=== PATIENT | male | born 1950 | race American Indian/Alaskan Native ===

== ENCOUNTER 2016-06-30 20:15 | Emergency (ER) | payer OTHER ==
[2016-06-30] MEDS: TETRACAINE 0.5% OU STA (21:16)
[2016-06-30] MEDS: FUL-GLO OP ONE (21:16)
--- NOTE | 2016-06-30 21:26 | Emergency Department Report ---
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 PT states sometimes little pieces of the buffer's pad will break off. PT states he thinks that got in his eye. PT states he was buffing the floors around 2230 and his eye felt irritated this am. PT states he looked at his eye and he noticed it was red. PT states he flushed his eye but he still feels like something is in it. PT does not wear contacts MD chief complaint: eye injury, foreign body -: Gradual Onset Description: gradual (irritation feeling ) Location: right eye Place: work If Injury: other (while buffering ) Eye Symptoms: redness, pain, foreign body sensation Severity scale (0 -10): 0 Consistency: constant Context: injury Associated Symptoms: denies: headache, neck pain, nausea/vomiting Treatments Prior to Arrival: irrigated eye - Related Data Patient Tetanus UTD: Yes Previous Rx's Medication Instructions Recorded Last Taken Type Tobramycin 0.3% [Tobrex] 2 drop OD Q8HR 7 Days 06/30/16 Unknown Rx Allergies Allergy/AdvReac Type Severity Reaction Status Date / Time No Known Allergies Allergy Verified 06/30/16 21:07 ED Review of Systems ROS: Stated complaint: F/B RT EYE Other details as noted in HPI Comment: All other systems reviewed and negative Constitutional: denies: chills, fever Eyes: eye pain (irritation ). denies: eye discharge, vision change, other ( redness ) Respiratory: denies: cough Skin: denies: rash, change in color ED Past Medical Hx - Past Medical History Previous Medical History?: No - Surgical History Past Surgical History?: No - Social History Smoking Status: Never Smoker Substance Use Type: None - Medications Home Medications: Home Medications Medication Instructions Recorded Confirmed Last Taken Type Tobramycin 0.3% [Tobrex] 2 drop OD Q8HR 7 Days 06/30/16 Unknown Rx ED Physical Exam - General Limitations: No Limitations General appearance: alert, in no apparent distress - Head Head exam: Present: atraumatic, normocephalic - Eye Eye exam: Present: EOMI, conjunctival injection (R eye ), other (pt has two areas of his R cornea with brown pigmentation, pt states this is not new ) - Expanded Eye Exam Expanded Eyelids: Normal Inspection: Right Pupils: Regular, Round: Bilateral, Reactive: Bilateral Sclera/Conjunctival: Injection: Right, Hemorrhage: Right Anterior chamber: Normal Inspection: Bilateral Visual acuity (R) = 20/: 30 Visual acuity (L) = 20/: 25 - ENT ENT exam: Present: normal exam, mucous membranes moist - Neck Neck exam: Present: normal inspection, full ROM - Respiratory Respiratory exam: Present: normal lung sounds bilaterally. Absent: respiratory distress - Cardiovascular Cardiovascular Exam: Present: regular rate, normal rhythm, normal heart sounds - Extremities Exam Extremities exam: Present: normal inspection, full ROM - Back Exam Back exam: Present: normal inspection, full ROM - Neurological Exam Neurological exam: Present: alert, oriented X3 - Psychiatric Psychiatric exam: Present: normal affect, normal mood - Skin Skin exam: Present: warm, dry, intact, normal color ED Course Vital Signs 06/30/16 21:07 Temperature 97.7 F Pulse Rate 65 Respiratory 18 Rate Blood Pressure 161/94 [Right] O2 Sat by Pulse 99 Oximetry - Reevaluation(s) Reevaluation #1: 06/30/16 21:38 Pt's R eye examined under wood's lamp. no corneal abrasion or fb noted. 06/30/16 21:42 pt aware he will need to follow up with his eye doctor. pt aware he will need to follow up with pcp for bp recheck - Pulse Oximetry Interpretation Digit-Finger Initial Pulse Oximetry Readin Actions Taken: none ED Medical Decision Making - Differential Diagnosis corneal abrasion, fb, conjunctivitis Critical Care Time: No Critical care attestation.: If time is entered above; I have spent that time in minutes in the direct care of this critically ill patient, excluding procedure time. ED Disposition Clinical Impression: Subconjunctival hemorrhage of right eye, Sensation of foreign body in eye Eye injury Qualifiers: Encounter type: initial encounter Laterality: right Qualified Code(s): S05.91XA - Unspecified injury of right eye and orbit, initial encounter Disposition: DISCHARGED TO HOME OR SELFCARE Is pt being admited?: No Does the pt Need Aspirin: No Condition: Stable Instructions: Subconjunctival Hemorrhage (ED), How to Use Eye Drops (ED) Additional Instructions: Follow up with your PCP in 1 week for BP recheck Follow up with your eye doctor in 2-3 days Follow up with Employee health Prescriptions: Tobramycin 0.3% [Tobrex] 2 drop OD Q8HR 7 Days Referrals: PRIMARY CARE, [Primary Care Provider] - 3-5 Days Time of Disposition: 21:47
[2016-06-30 22:04] VITALS: BP 161/94
== END 2016-06-30 22:07 | disposition home or self-care (01) ==
LOC: ED 20:15
DX: S05.91XA Unspecified injury of right eye and orbit, initial encounter (principal); H11.31 Conjunctival hemorrhage, right eye; X58.XXXA Exposure to other specified factors, initial encounter; Y93.9 Activity, unspecified; Y92.9 Unspecified place or not applicable; Y99.9 Unspecified external cause status
CPT/HCPCS: 99282